=== PATIENT | female | born 2000 | race Caucasian/White ===

== ENCOUNTER 2023-06-13 16:47 | Emergency (ER) | payer OTHER, MEDICAID, SELFPAY ==
--- NOTE | ~2023-06-13 | XR_ITS ---
EXAMINATION: XR chest 2V Exam Date/Time: 06/13/2023 17:20 CDT HISTORY: chest tightness RT SIDED CHEST PAIN SINCE SUNDAY Comparison: None. RESULT: Lines, tubes, and devices: None. Lungs and pleura: Clear. Cardiomediastinal silhouette: Normal. Other: No acute osseous or upper abdominal finding. IMPRESSION: No acute cardiopulmonary process. Reviewed, dictated and finalized at location K.
--- NOTE | 2023-06-13 16:48 | ECG_ITS ---
Measurements Intervals [place] Rate: 90 P: 77 [place]: 136 QRS: 70 QRSD: 90 T: 15 QT: 332 QTc: 407 Interpretive Statements SINUS RHYTHM ST DEVIATION AND MODERATE T-WAVE ABNORMALITY, CONSIDER ANTEROLATERAL ISCHEMIA [-0.1+ mV T WAVE IN V3-V6] NO PREVIOUS ECG AVAILABLE FOR COMPARISON Electronically Signed On 06-14-2023 8:55:19 CDT by Deana Buchanan M.D.
[2023-06-13 16:49] VITALS: BP 132/77; PULSE 107; RESP 20; TEMP 36.8; O2SAT 100
[2023-06-13 17:10] LABS: Basophils Percent Auto 0.7 % (0.2-1.2); Eosinophils Absolute Auto 0.1 K/mm3 (0-0.3); Eosinophils Percent Auto 1.7 % (0-4.4); Hematocrit 37.4 % (37.0-47.0); Hemoglobin 11.9 g/dL (12.0-15.0); Immature Granulocyte Absolute 0.01 K/mm3 (0.00-0.031); Immature Granulocyte Percent A 0.2 % (0-0.5); Lymphocytes Absolute Auto 1.52 K/mm3 (0.9-3.2); Mean Corpuscular HGB Conc 31.8 g/dl (32-36); Mean Corpuscular Hemoglobin 26.7 pg (26-34); Mean Corpuscular Volume 83.9 fl (80-100); Mean Platelet Volume 12.1 fl (7.4-10.4); Monocytes Absolute Auto 0.3 K/mm3 (0.1-0.6); Monocytes Percent Auto 5.6 % (2.6-8.5); Neutrophils Absolute Auto 2.7 K/mm3 (1.3-6.7); Neutrophils Percent Auto 58.8 % (45.5-73.1); Platelet Count Result 227 k/mm3 (150-375); Red Blood Count 4.46 M/mm3 (4.2-5.4); Red Cell Distribution Width 14.3 % (11.5-14.5); White Blood Count 4.6 K/mm3 (4.5-10.0)
[2023-06-13 17:21] LABS: Alanine Aminotransferase 17 U/L (6-35); Alkaline Phosphatase 59 U/L (38-126); Anion Gap 13 mmol/L (8-16); Aspartate Amino Transferase 22 U/L (14-36); Bilirubin,Total 1.8 mg/dL (0.2-1.3); Blood Urea Nitrogen 13 mg/dL (7-17); Calcium 9.9 mg/dL (8.4-10.2); Carbon Dioxide 25 mmol/L (22-30); Chloride 104 mmol/L (98-107); Estimated CRCL calculation 107 ml/min; Estimated Glomerular Filt Rate > 60; Glucose 83 mg/dL (65-110); Lipase 33 U/L (23-300); Potassium 3.3 mmol/L (3.4-5.0); Prothrombin Time 13.6 Seconds (11.1-14.7); Sodium 142 mmol/L (137-145)
[2023-06-13 17:22] LABS: Partial Thromboplastin Time 29.6 SECONDS (22.3-36.8)
[2023-06-13 17:32] LABS: Troponin I < 0.012 ng/mL (0.000-0.034)
[2023-06-13 20:20] LABS: Troponin I < 0.012 ng/mL (0.000-0.034)
--- NOTE | 2023-06-13 20:25 | ED.GENADULT ---
HPI - General Adult General Chief complaint: Chest Pain Stated complaint: R sided chest tightness and discomfort Time Seen by Provider: 06/13/23 20:22 Source: patient Mode of arrival: ambulatory Limitations: no limitations History of Present Illness HPI narrative: This is a 23-year-old female presents to the ED with chief complaint of right-sided chest pressure ongoing for the past 3 days. Patient states this initially began with some palpitations while she was sitting on the couch. Since then she has had a dull ache in the right side of the chest. She does state that it is worsened at times with deeper breathing. Also reports that it is worsened with specific movements. Denies increase in pain with exertion. Denies any vomiting, LOC. Denies shortness of breath, leg swelling, cough. Denies blood clot history. She endorses being on a hormonal control. Additionally she states she has been very stressed lately with family and work. Related Data Allergies Allergy/AdvReac Type Severity Reaction Status Date / Time No Known Allergies Allergy Verified 06/13/23 20:35 Review of Systems Review of Systems: All systems as dictated in HPI Exam Narrative: GENERAL: Well-appearing, well-nourished, and in no acute distress. HEAD: Normocephalic, atraumatic. EYES: PERRLA and EOMI. ENT: Nares clear, no rhinorrhea or epistaxis. Mucous membranes moist. Oropharynx without tonsillar hypertrophy exudate or other lesions. NECK: Supple. No adenopathy or masses. CHEST: No respiratory distress. Clear to auscultation. No wheezes rales or rhonchi HEART: Regular rate and rhythm. No murmur heard. Normal peripheral pulses. ABDOMEN: Soft, nontender, nondistended, normal active bowel sounds. MSK: Normal range of motion. No edema. SKIN: Warm, dry, no rash. NEURO: Alert and oriented x3. No focal deficits. PSYCH: Normal mood and affect. Course Vital Signs Vital signs: Vital Signs Temperature 98.2 F 06/13/23 16:49 Pulse Rate 107 H 06/13/23 16:49 Respiratory Rate 20 06/13/23 16:49 Blood Pressure 132/77 06/13/23 16:49 Pulse Oximetry 100 06/13/23 16:49 Oxygen Delivery Room Air 06/13/23 16:49 Temperature 98.2 F 06/13/23 16:49 Pulse Rate 67 06/13/23 21:37 Respiratory Rate 18 06/13/23 21:37 Blood Pressure 100/65 06/13/23 21:37 Pulse Oximetry 100 06/13/23 21:37 Oxygen Delivery Room Air 06/13/23 20:36 Medical Decision Making MDM Narrative Medical decision making narrative: This is a 23-year-old female who presents to the ED with chief complaint of right-sided chest pain/pressure for the past 2 to 3 days. Vitals are normal. She does show initial tachycardia to 107 but this normalized during course of her visit. Exam is unremarkable. EKG is without acute ischemia. Heart score 0. Serial troponins are negative. D-dimer negative. Very low concern for blood clot with a normal physical exam and negative D-dimer. Chest x-ray normal. Her symptoms are exacerbated with certain movements, this is likely due to strain. Her symptoms feel improved and she is ready to go home. Stable for discharge. Return precautions given and supportive measures discussed. PCP referral given. She is understanding and agreeable with plan for discharge and follow-up with PCP. Vital Signs Vital Signs: Vital Signs Temperature 98.2 F 06/13/23 16:49 Pulse Rate 107 H 06/13/23 16:49 Respiratory Rate 20 06/13/23 16:49 Blood Pressure 132/77 06/13/23 16:49 Pulse Oximetry 100 06/13/23 16:49 Oxygen Delivery Room Air 06/13/23 16:49 Temperature 98.2 F 06/13/23 16:49 Pulse Rate 67 06/13/23 21:37 Respiratory Rate 18 06/13/23 21:37 Blood Pressure 100/65 06/13/23 21:37 Pulse Oximetry 100 06/13/23 21:37 Oxygen Delivery Room Air 06/13/23 20:36 Lab Data 06/13/23 17:01 06/13/23 17:01 Labs: Lab Results 06/13/23 06/13/23 Range/Units 17:01 19
[2023-06-13 20:39] VITALS: PULSE 70
[2023-06-13] MEDS: Please add drug allergy info to patient profile. 1 EACH XX (20:46)
--- NOTE | 2023-06-13 20:48 | PC.NURSE ---
Per EDP CHRISTINA Patterson 324mg of Aspirin not needed for the patient
[2023-06-13 21:21] LABS: D Dimer < 0.27 ug/mL (<0.48)
[2023-06-13 21:37] VITALS: BP 100/65; PULSE 67; RESP 18; O2SAT 100
== END 2023-06-13 21:43 | disposition home or self-care (01) ==
PROVIDERS: Emergency Medicine; Emergency Provider Physician Assistant
DX: R07.89 Other chest pain (principal); R94.31 Abnormal electrocardiogram [ECG] [EKG]
CPT/HCPCS: 36415; 71046; 80053; 83690; 84484; 85025; 85380; 85610; 85730; 93005; 99284

== ENCOUNTER 2024-03-27 17:28 | Emergency (ER) | payer OTHER, SELFPAY ==
[2024-03-27 17:30] VITALS: BP 130/92; PULSE 74; RESP 16; TEMP 36.4; O2SAT 100
--- NOTE | 2024-03-27 19:43 | PC.NURSE ---
193-PATIENT STATES SHE IS LEAVING AND GOING TO ANOTHER HOSPITAL. APOLOGIZED TO PATIENT FOR THE LENGTH OF HER WAIT.
== END 2024-03-28 00:04 | disposition left against medical advice (07) ==
DX: R06.00 Dyspnea, unspecified (principal)
CPT/HCPCS: 99199